=== PATIENT | male | born 1995 | race Caucasian/White ===

== ENCOUNTER 2018-03-08 16:59 | Emergency (ER) | payer BC ==
[2018-03-08] MEDS ORDERED: QUEtiapine TAB* 100 MG PO ONE (17:47)
[2018-03-08] MEDS ORDERED: Nicotine Inhaler* 10 MG AMP ONE (18:01)
[2018-03-08] MEDS ORDERED: Mouth Piece, Nicotine* 1 EACH CARTRIDGE ONE (18:02)
[2018-03-08] MEDS ORDERED: Mouth Piece, Nicotine* 1 EACH CARTRIDGE INH ONE (18:03)
[2018-03-08 18:33] LABS: ABS Basophils 0.1 10^3/ul (0-0.2); ABS Eosinophils 0.1 10^3/ul (0-0.6); ABS Lymphocytes 2.8 10^3/ul (1.0-4.8); ABS Monocytes 0.6 10^3/ul (0-0.8); ABS Neutrophils 4.4 10^3/ul (1.5-7.7); ABS Nucleated RBC 0 10^3/ul; Hematocrit 47 % (42-52); Hemoglobin 16.3 g/dl (14.0-18.0); Lymphocyte % 35.8 % (25-47); Mean Corpuscular HGB Conc 35 g/dl (31-36); Mean Corpuscular Hemoglobin 32 pg (27-31); Mean Corpuscular Volume 92 fL (80-94); Mean Platelet Volume 9.3 um3 (7.4-10.4); Nucleated Red Blood Cells % 0.1; Platelet Count 169 10^3/ul (150-450); Red Blood Count 5.08 10^6/ul (4.00-5.40); Red Cell Distribution Width 14 % (10.5-15); White Blood Count 7.9 10^3/ul (3.5-10.8)
[2018-03-08 18:36] LABS: Urine Appearance Clear; Urine Blood Negative (Negative); Urine Color Yellow; Urine Ketones Negative (Negative); Urine Protein Negative (Negative); Urine Specific Gravity 1.028 (1.010-1.030); Urine Urobilinogen Negative (Negative)
--- NOTE | 2018-03-08 18:45 | ED ---
Chris Garcia Simon, scribed for Marco Antonio Kinney MD on 03/08/18 at 1734 . Psychiatric Complaint - HPI Summary HPI Summary: This patient is a 23 year old M presenting to [facility] accompanied by his roommate with a chief complaint of medication withdrawal since stopping Seroquel. PMHx schizophrenia, anxiety, ADHD. Pt has lived in area for 1 week, and has no psychiatrist locally. Hasnt taken medication for a couple days. He endorses rj due to withdrawal and (responding to) auditory hallucinations. Denies SI. RHx 40 mg Buspar, 400 mg Seroquel. - History Of Current Complaint Chief Complaint: EDMentalHealth Time Seen by Provider: 03/08/18 17:13 Hx Obtained From: Patient Onset/Duration: Gradual Onset, Lasting Days, Worse Since - ran out of meds Timing: Constant Severity Initially: Mild Severity Currently: Moderate Character: Manic Aggravating Factor(s): Medication Non-compliance - ran out of meds Alleviating Factor(s): Medication - seroquel Associated Signs And Symptoms: Positive: Hallucinating Related History: Positive For: Prior Psychiatric Issues - schizophrenia, ADHD, anxiety Has Suicidal: Denies: Thoughts Has Homicidal: Denies: Thoughts - Allergies/Home Medications Allergies/Adverse Reactions: Allergies Allergy/AdvReac Type Severity Reaction Status Date / Time No Known Allergies Allergy Verified 03/08/18 17:03 PMH/Surg Hx/FS Hx/Imm Hx Sensory History: Denies: Hx Contacts or Glasses, Hx Legally Blind Opthamlomology History: Denies: Hx Contacts or Glasses, Hx Legally Blind EENT History: Denies: Hx Deafness Psychiatric History: Reports: Hx Anxiety, Hx Attention Deficit Hyperactivity Disorder, Hx Schizophrenia Infectious Disease History: No Infectious Disease History: Denies: Traveled Outside the US in Last 30 Days - Family History Known Family History: Negative: Blood Disorder - Social History Lives: Dormitory/Roommates - roomate Review of Systems Negative: Fever Neurological: Other - restless legs Positive: Other - auditory hallucinations and responding to them. All Other Systems Reviewed And Are Negative: Yes Physical Exam - Summary Physical Exam Summary: General: well-appearing, no pain distress Skin: warm, color reflects adequate perfusion, dry Head: normal Eyes: EOMI, CHAYO ENT: normal Neck: supple, nontender Respiratory: CTA, breath sounds present Cardiovascular: RRR Abdomen: soft, nontender Bowel: present Musculoskeletal: normal, strength/ROM intact Neurological: sensory/motor intact, A&O x3 Psychological: pressured speech, manic Triage Information Reviewed: Yes Vital Signs On Initial Exam: Initial Vitals Temp Pulse Resp BP Pulse Ox 98.7 F 77 14 126/71 95 03/08/18 17:01 03/08/18 17:01 03/08/18 17:01 03/08/18 17:01 03/08/18 17:01 Vital Signs Reviewed: Yes Diagnostics - Vital Signs Vital Signs Temp Pulse Resp BP Pulse Ox 03/08/18 17:01 98.7 F 77 14 126/71 95 - Laboratory Lab Results: Lab Results 03/08/18 03/08/18 Range/Units 18:24 18:27 WBC 7.9 (3.5-10.8) 10^3/ul RBC 5.08 (4.00-5.40) 10^6/ul Hgb 16.3 (14.0-18.0) g/dl Hct 47 (42-52) % MCV 92 (80-94) fL MCH 32 H (27-31) pg MCHC 35 (31-36) g/dl RDW 14 (10.5-15) % Plt Count 169 (150-450) 10^3/ul MPV 9.3 (7.4-10.4) um3 Neut % (Auto) 54.9 (38-83) % Lymph % (Auto) 35.8 (25-47) % [place] % (Auto) 7.4 H (0-7) % Eos % (Auto) 1.0 (0-6) % Baso % (Auto) 0.9 (0-2) % Absolute Neuts (auto) 4.4 (1.5-7.7) 10^3/ul Absolute Lymphs (auto) 2.8 (1.0-4.8) 10^3/ul Absolute Monos (auto) 0.6 (0-0.8) 10^3/ul Absolute Eos (auto) 0.1 (0-0.6) 10^3/ul Absolute Basos (auto) 0.1 (0-0.2) 10^3/ul Absolute Nucleated RBC 0 10^3/ul Nucleated RBC % 0.1 Urine Color Yellow Urine Appearance Clear Urine pH 6.0 (5-9) Ur Specific [place] 1.028 (1.010-1.030) Urine Protein Negative (Negative) Urine Ketones Negative (Negative) Urine Blood Negative (Negative) Urine Nitrate Negative (Negative) Urine Bilirubin Negative (Negative) Urine Urobilinogen Negative (Negative) Ur Leukocyte Esterase Negative (Negative) Urine Glucose Negative (Negative) Urine Ascorbic Acid * A (Negative) Result Diagrams: 03/08/18 18:27 Lab Statement: Any lab studies that have been ordered have been reviewed, and results considered in the medical decision making process. Re-Evaluation - Re-Evaluation First Eval Re-Evaluation Time: 17:35 Change: Unchanged Comment: discussed pt care, what direction pt would like to take regarding disposition. Agreeable to mental health evaluation. Second Eval Re-Evaluation Time: 18:05 Change: Unchanged Comment: Spoke with pt's roommate, discussed single dose seroquel and going to outpatient tx vs inpatient tx and MHE today. roommate in favor of MHE today. Course/Dx - Course Course Of Treatment: DISPOSITION AND MHE PENDING AT SHIFT CHANGE. - Differential Dx/Clinical Impression Provider Diagnosis: Mental health problem Discharge - Sign-Out/Discharge Documenting (check all that apply): Sign-Out Patient Signing out patient TO: Colin Abraham - MHE - Discharge Plan Condition: Stable [facility] [place] Referrals: No Primary Care Phys,NOPCP [Primary Care Provider] - - Billing Disposition and Condition Condition: STABLE Disposition: Psychiatric Facility [facility] The documentation as recorded by the Chris che Simon accurately reflects the service I personally performed and the decisions made by me, Marco Antonio Kinney MD.
[2018-03-08 18:51] LABS: EGFR Non-African American 96.6 (>60)
--- NOTE | 2018-03-08 23:11 | ED ---
IPetar Tariq, scribed for Colin Abraham MD on 03/08/18 at 2306 . Progress - Consult/PCP Time Called: 17:01 Re-Evaluation - Re-Evaluation First Eval Re-Evaluation Time: 17:35 Change: Unchanged Comment: discussed pt care, what direction pt would like to take regarding disposition. Agreeable to mental health evaluation. Second Eval Re-Evaluation Time: 18:05 Change: Unchanged Comment: Spoke with pt's roommate, discussed single dose seroquel and going to outpatient tx vs inpatient tx and MHE today. roommate in favor of MHE today. Course/Dx - Course Course Of Treatment: DISPOSITION AND MHE PENDING AT SHIFT CHANGE. - Diagnoses Provider Diagnoses: Mental health problem, Schizophrenia - Provider Notifications Discussed Care Of Patient With: Jody Gabriel Discharge - Sign-Out/Discharge Documenting (check all that apply): Discharge/Admit/Transfer - DISCHARGE - Discharge Plan Condition: Stable Disposition: HOME Patient Education Materials: Mood Disorders (ED) Referrals: No Primary Care Phys,NOPCP [Primary Care Provider] - Additional Instructions: FOLLOW UP WITH [facility]. RETURN TO THE EMERGENCY DEPARTMENT FOR CHANGING OR WORSENING SYMPTOMS The documentation as recorded by the Petar che Tariq accurately reflects the service I personally performed and the decisions made by me, Colin Abraham MD.
[2018-03-08 23:29] VITALS: BP 108/62
== END 2018-03-08 23:27 | disposition home or self-care (01) ==
LOC: ED 16:59
DX: F20.9 Schizophrenia, unspecified (principal); R44.3 Hallucinations, unspecified; F41.9 Anxiety disorder, unspecified
CPT/HCPCS: 36415; 80053; 80307; 80320; 80329; 81003; 84443; 85025; 99285; A9270-GY; G0480

== ENCOUNTER 2018-03-31 18:37 | Emergency (ER) | payer BC ==
--- NOTE | 2018-03-31 18:58 | ED ---
Psychiatric Complaint - HPI Summary HPI Summary: This is [facility] documenting for attending Marco Antonio Tello MD. Pt is a 23 y/o M p/w psychiatric complaint onset 09 this AM. Assoc. Sx: Anxiety, disorganized. Denies: SI/HI. Per triage, patient states, "I am having a mental breakdown". Patient has a Hx of cutting themselves when triggered. Per commercial banker, he was disappointed in something someone did today and gave SI over text to a friend which he did not mean. PMHx: Patient was treated with ritalin, anti-anxiety meds, celexa, citalopram - mood stabilizer, zoloft at different times but they failed to alleviate his Sx. He states that Hydroxyzene makes him very happy "running around". - History Of Current Complaint Chief Complaint: EDMentalHealth Time Seen by Provider: 03/31/18 18:51 Hx Obtained From: Patient Onset/Duration: Gradual Onset, Lasting Hours Timing: Constant Character: Anxious Aggravating Factor(s): Recent Stress Associated Signs And Symptoms: Positive: Hostile - "Cutting" Has Suicidal: Denies: Thoughts Has Homicidal: Denies: Thoughts - Allergies/Home Medications Allergies/Adverse Reactions: Allergies Allergy/AdvReac Type Severity Reaction Status Date / Time No Known Allergies Allergy Verified 03/08/18 17:03 Home Medications: Home Medications NK [No Home Medications Reported] 03/31/18 [History Confirmed 03/31/18] PMH/Surg Hx/FS Hx/Imm Hx Sensory History: Denies: Hx Contacts or Glasses, Hx Legally Blind, Hx Deafness Opthamlomology History: Denies: Hx Contacts or Glasses, Hx Legally Blind Psychiatric History: Reports: Hx Anxiety, Hx Attention Deficit Hyperactivity Disorder, Hx Schizophrenia Denies: Hx Eating Disorder Infectious Disease History: No Infectious Disease History: Denies: Traveled Outside the US in Last 30 Days - Family History Known Family History: Negative: Blood Disorder - Social History Occupation: Unemployed Lives: With Family Alcohol Use: Rare Substance Use Type: Reports: Marijuana Smoking Status (MU): Light Every Day Tobacco Smoker Review of Systems Negative: Fever Positive: Anxious, Other - Feeling "disorganized" All Other Systems Reviewed And Are Negative: Yes Physical Exam - Summary Physical Exam Summary: VITAL SIGNS: Reviewed. GENERAL: Patient is a well-developed and nourished (MALE OR FEMALE) who is lying comfortable in the stretcher. Patient is not in any acute respiratory distress. HEAD AND FACE: No signs of trauma. No ecchymosis, hematomas or skull depressions. No sinus tenderness. EYES: PERRLA, EOMI x 2, No injected conjunctiva, no nystagmus. EARS: Hearing grossly intact. Ear canals and tympanic membranes are within normal limits. MOUTH: Oropharynx within normal limits. NECK: Supple, trachea is midline, no adenopathy, no JVD, no carotid bruit, no c- spine tenderness, neck with full ROM. CHEST: Symmetric, no tenderness at palpation LUNGS: Clear to auscultation bilaterally. No wheezing or crackles. CVS: Regular rate and rhythm, S1 and S2 present, no murmurs or gallops appreciated. ABDOMEN: Soft, non-tender. No signs of distention. No rebound no guarding, and no masses palpated. Bowel sounds are normal. EXTREMITIES: FROM in all major joints, no edema, no cyanosis or clubbing. NEURO: Alert and oriented x 3. No acute neurological deficits. Speech is normal and follows commands. SKIN: Dry and warm Triage Information Reviewed: Yes Vital Signs On Initial Exam: Initial Vitals Temp Pulse Resp BP Pulse Ox 99.0 F 85 16 153/82 99 03/31/18 18:38 03/31/18 18:38 03/31/18 18:38 03/31/18 18:38 03/31/18 18:38 Vital Signs Reviewed: Yes Diagnostics - Vital Signs Vital Signs Temp Pulse Resp BP Pulse Ox 03/31/18 18:38 99.0 F 85 16 153/82 99 - Laboratory Result Diagrams: 03/31/18 19:45 03/31/18 19:45 Lab Statement: Any lab studies that have been ordered have been reviewed, and results considered in the medical decision making process. Course/Dx - Course Assessment/Plan: Blood work without any significant abnormality. Patient is medically clear. Patient is awaiting for mental health evaluation. Patient is hemodynamically stable. Patient will be signed out to Dr. Hicks at shift change to follow-up the recommendations from mental health. - Differential Dx/Clinical Impression Differential Diagnosis/HQI/PQRI: Positive: Anxiety, Depression, Suicidal Ideation Provider Diagnosis: Depression Discharge - Sign-Out/Discharge Documenting (check all that apply): Sign-Out Patient Signing out patient TO: Dannie Hicks - Discharge Plan Referrals: No Primary Care Phys,NOPCP [Primary Care Provider] -
[2018-03-31 19:16] LABS: Urine Appearance Cloudy; Urine Blood Negative (Negative); Urine Color Yellow; Urine Ketones Negative (Negative); Urine Protein Negative (Negative); Urine Red Blood Cell 1+(3-5/hpf) (Absent); Urine Specific Gravity 1.025 (1.010-1.030); Urine Urobilinogen Negative (Negative); Urine White Blood Cell 2+(11-20/hpf) (Absent)
[2018-03-31 19:56] LABS: ABS Basophils 0.1 10^3/ul (0-0.2); ABS Eosinophils 0.1 10^3/ul (0-0.6); ABS Lymphocytes 2.4 10^3/ul (1.0-4.8); ABS Monocytes 0.7 10^3/ul (0-0.8); ABS Neutrophils 6.5 10^3/ul (1.5-7.7); ABS Nucleated RBC 0 10^3/ul; Eosinophil % 0.5 % (0-6); Hematocrit 47 % (42-52); Hemoglobin 16.4 g/dl (14.0-18.0); Lymphocyte % 24.7 % (25-47); Mean Corpuscular HGB Conc 35 g/dl (31-36); Mean Corpuscular Hemoglobin 32 pg (27-31); Mean Corpuscular Volume 92 fL (80-94); Mean Platelet Volume 9.2 um3 (7.4-10.4); Nucleated Red Blood Cells % 0.1; Platelet Count 190 10^3/ul (150-450); Red Blood Count 5.11 10^6/ul (4.00-5.40); Red Cell Distribution Width 13 % (10.5-15); White Blood Count 9.8 10^3/ul (3.5-10.8)
[2018-03-31 20:28] LABS: EGFR Non-African American 79.1 (>60)
[2018-03-31 20:47] VITALS: BP 120/74
--- NOTE | 2018-03-31 22:17 | ED ---
Progress - Progress Note Progress Note: This patient was signed out from Dr. Tello awaiting MHE and dispo. - Consult/PCP Time Called: 19:25 Course/Dx - Course Course Of Treatment: After MHE by Dr. Gabriel the pt was deemed stable to return home with dx of substance abuse disorder. - Diagnoses Provider Diagnoses: Substance abuse Discharge - Sign-Out/Discharge Documenting (check all that apply): Patient Departure, Receiving Sign-Out Receiving patient FROM: Miguel Tello - Discharge Plan Condition: Stable Disposition: HOME Referrals: No Primary Care Phys,NOPCP [Primary Care Provider] - Additional Instructions: Per completion of a mental health evaluation, you are cleared for release and do not require inpatient psychiatric hospitalization at this time. Please go to nearest emergency room or call 911 if safety concerns arise or condition worsens. Follow up with [facility] for medication management and therapy. [facility].......................[phone] [place] [address] Behavioral Services Unit........[phone] Suicide Prevention and Crisis Services........................[phone] National Suicide Prevention Lifeline............................356-298-CWKR ( 0431) Alcoholics Anonymous...............................................[phone] [facility]..............[phone] [place] [employer]..............................................[phone] - Billing Disposition and Condition Condition: STABLE Disposition: Home
== END 2018-03-31 23:14 | disposition home or self-care (01) ==
LOC: ED 18:37
DX: F41.9 Anxiety disorder, unspecified (principal); F32.9 Major depressive disorder, single episode, unspecified; F19.10 Other psychoactive substance abuse, uncomplicated; F17.200 Nicotine dependence, unspecified, uncomplicated
CPT/HCPCS: 36415; 80053; 80061; 80307; 80320; 80329; 81003; 81015; 83036; 84443; 85025; 87086; 99283; G0480

== ENCOUNTER 2018-04-01 03:15 | Inpatient (IN) | payer BC ==
--- NOTE | 2018-04-01 03:33 | ED ---
Psychiatric Complaint - HPI Summary HPI Summary: This is yane Zamora documenting for attending Dannie Hicks MD. This patient is a 23 year old M presenting to [facility] accompanied by a housemate with a chief complaint of SI. Pt states he needs to be admitted for SI and is requesting specific medications. He feels this way due to the recent stress of living with one of his roommates who has been mean to him. Pt was just discharged from the ED for similar issues earlier today and used marijuana after he left. - History Of Current Complaint Chief Complaint: EDMentalHealth Time Seen by Provider: 04/01/18 03:22 Hx Obtained From: Patient Onset/Duration: Still Present Timing: Constant Severity Initially: Mild Severity Currently: Mild Character: Depressed Aggravating Factor(s): Recent Stress, Drug Use Related History: Positive For: Prior Psychiatric Issues Has Suicidal: Reports: Thoughts - Allergies/Home Medications Allergies/Adverse Reactions: Allergies Allergy/AdvReac Type Severity Reaction Status Date / Time No Known Allergies Allergy Verified 03/08/18 17:03 PMH/Surg Hx/FS Hx/Imm Hx Endocrine/Hematology History: Denies: Hx Bone Marrow Disease, Hx Diabetes Sensory History: Denies: Hx Contacts or Glasses, Hx Legally Blind, Hx Deafness Opthamlomology History: Denies: Hx Contacts or Glasses, Hx Legally Blind Neurological History: Denies: Hx CVA, Hx Peripheral Neuropathy, Hx Transient Ischemic Attacks (TIA) Psychiatric History: Reports: Hx Anxiety, Hx Attention Deficit Hyperactivity Disorder, Hx Schizophrenia Denies: Hx Eating Disorder Infectious Disease History: No Infectious Disease History: Denies: Traveled Outside the US in Last 30 Days - Family History Known Family History: Negative: Respiratory Disease, Seizure Disorder, Blood Disorder - Social History Lives: Dormitory/Roommates Alcohol Use: Rare Substance Use Type: Reports: Marijuana Smoking Status (MU): Light Every Day Tobacco Smoker Review of Systems Negative: Fever Positive: Other - si All Other Systems Reviewed And Are Negative: Yes Physical Exam - Summary Physical Exam Summary: Appearance: Well appearing, no pain distress Skin: warm, dry, reflects adequate perfusion Head/face: normal Eyes: EOMI, CHAYO ENT: normal Neck: supple, non-tender Respiratory: CTA, breath sounds present Cardiovascular: RRR, pulses symmetrical Abdomen: non-tender, soft Bowel: present Musculoskeletal: normal, strength/ROM intact Neuro: normal, sensory motor intact, A&Ox3 Psych: Depressed affect Triage Information Reviewed: Yes Vital Signs On Initial Exam: Initial Vitals Temp Pulse Resp BP Pulse Ox 98.5 F 100 18 144/84 98 04/01/18 03:17 04/01/18 03:17 04/01/18 03:17 04/01/18 03:17 04/01/18 03:17 Vital Signs Reviewed: Yes Diagnostics - Vital Signs Vital Signs Temp Pulse Resp BP Pulse Ox 04/01/18 03:17 98.5 F 100 18 144/84 98 - Laboratory Lab Statement: Any lab studies that have been ordered have been reviewed, and results considered in the medical decision making process. Course/Dx - Course Assessment/Plan: After MHE by Dr. Gabriel the patient will be admitted for SI and depression. - Differential Dx/Clinical Impression Provider Diagnosis: Suicidal ideation, Depression Discharge - Sign-Out/Discharge Documenting (check all that apply): Patient Departure - admitted - Discharge Plan Condition: Fair Disposition: [facility] - Billing Disposition and Condition Condition: FAIR Disposition: Psychiatric Facility [facility]
[2018-04-01] MEDS ORDERED: Al Hydrox/Mg Hydrox/Simet LIQ* 30 ML UDC PO PRN (06:24)
[2018-04-01] MEDS ORDERED: Nicotine Inhaler* 10 MG AMP INH PRN (06:24)
[2018-04-01] MEDS ORDERED: Acetaminophen TAB* 325 MG PO PRN (06:24)
[2018-04-01] MEDS ORDERED: Mouth Piece, Nicotine* 1 EACH CARTRIDGE INH SCH (06:24)
[2018-04-01] MEDS: Vitamin THERAPEUTIC TAB PO SCH (12:26)
--- NOTE | 2018-04-01 15:47 | HP ---
H&P (Free Text) History and Physical: JUSTIFICATION FOR ADMISSION: Patient presented to emergency room with suicidal ideation and plan, worsening of his mood instability, suicidal thoughts and delusional thinking. He requires inpatient psychiatric admission in order to provide treatment and stabilization as he is a danger to himself. CHIEF COMPLAINT: "I was feeling suicidal; Monik mother is mean to me HISTORY OF THE PRESENT ILLNESS: Patient is 23 a y/o homosexual male, single, living with his father like figures, currently unemployed, with history of psychotic and manic symptoms. Patient was admitted to inpatient unit for worsening of his mood instability and suicidal thoughts with psychotic and paranoid/persecutory delusions. Patient has been not be compliant with his outpatient mental health treatment and medications for months. Patient reports that he has been erratic at home, talking to self, hyperverbal, loud, restless, not sleeping, increased goal directed activity, paranoid towards others at the house. Patient reports that marijuana works for him and brings down his anxiety and paranoia. Patient reports that he is not getting enough from [employer] as he cannot afford it anymore. Patient reportedly has been struggling with his financial issues as he has not been working and has estranged relationship with his biological mother and father. Patient reports manic symptoms as mentioned above. Patient reports psychotic symptoms of mostly his delusional thinking and auditory hallucinations that belittles him. Patient reported suicidal ideation when he was driving with [facility] to that hospital. Patient continued to exhibit behavior that is unpredictable and impulsive but has been seclusive on the unit and reported feeling better as he smoked a lot before coming in last night. Patient focused on Effexor and Zyprexa that has helped him in the past and wants to be restarted on that. Patient also asking provider to see his video that [employer] has taken and he will want it to be sent to social security office and when asked why he stated that he has always been on disability. PAST PSYCHIATRIC HISTORY: Patient has history of multiple inpatient psychiatric hospitalization due to both manic/psychotic symptoms and depression. Patient has history of intermittent outpatient psychiatric treatment for his mood and psychosis but reportedly has not been in any treatment for last 2 years. Patient has been on multiple medication trial in the past and reports responding to Effexor 75 mg and Zyprexa 20 mg. Patient reported SSRI did not help him in the past. Patient has history of suicidal thoughts and attempts in the past by either cutting wrist or trying to hang self leading to hospitalizations. Patient reports most were related to relationship difficulties. Patient has history of no homicidal threats, intent or attempt. Patient has history of aggressive and agitated behavior when decompensates. No access to firearm reported. SUBSTANCE ABUSE HISTORY: Patient uses cannabis regularly unspecified amounts daily. Urine toxicology was positive for cannabis. Last use was before presenting to E.D. PAST MEDICAL HISTORY: No active medical problems ALLERGIES: NKA FAMILY PSYCHIATRIC HISTORY: Patient has family history of anxiety/depression in mother but feels that his father has schizophrenia. Patient has history of substance abuse in family. No reported suicide in the family. FAMILY/PSYCHOSOCIAL HISTORY: Patient currently lives with his father like figures. Patient is not . Patient has no children. Patient has estranged relationship with his parents. Parents are not together. Patient has not seen his father since he was very young and just speaks to him on the phone. Patient education level is dropped out from 11th grade and reports that he had difficulty with mathematics and never pursued his further education. Patient support system includes his housemates and his friends. REVIEW OF SYSTEMS: Patients review of symptoms was negative for any physical complaint. But patient has been seclusive and depressed in his mood, vitals with in normal limits. Patients ED physical exam was reviewed which is grossly normal with no active medical problem. Physical Exam Summary as per E.D: Appearance: Well appearing, no pain distress Skin: warm, dry, reflects adequate perfusion Head/face: normal Eyes: EOMI, CHAYO ENT: normal Neck: supple, non-tender Respiratory: CTA, breath sounds present Cardiovascular: RRR, pulses symmetrical Abdomen: non-tender, soft Bowel: present Musculoskeletal: normal, strength/ROM intact Neuro: normal, sensory motor intact, A&Ox3 MENTAL STATUS EXAMINATION: Appearance: unkempt, poor eye contact, dressed in hospital gown, lying on his bed Behavior: superficially cooperative Gait: normal Abnormal motor activity: restless, hyperactive Speech: loud, hyperverbal, increased rate and rhythm Mood: depressed Affect: labile Thought process: tangential to circumstantial Thought Content: Suicidal/Homicidal ideation: denies Delusions: paranoid toward everns mother Obsessions: none Phobia: none Perceptual disturbance: none Attention: fair Orientation: grossly intact Concentration: limited Memory: fair Insight: limited Judgment: fair Impulse control: poor as per recent evidence IMPRESSION: Patient with history of mood disorder and psychotic symptoms with cannabis abuse. Patient currently admitted due to worsening of mood and suicidal thoughts. Patient has also failed to follow with outpatient f/u. Patient is a danger to self and others if discharged hence will be stabilized on inpatient unit with medication adjustments and therapy. DIAGNOSES: Schizoaffective Disorder, Cannabis Abuse Prov: Substance Induced Mood /Psychotic Disorder; Bipolar Disorder with Psychotic features PLAN: Admit to [facility] on Q 15 min observation. Patient is full code. Patient is on voluntary admission status Integrate patient into the milieu individual and group psychotherapy MMPI and psychological consult with Dr. Benitez. Social work consult for therapy and discharge planning Will hold family meeting with parents to increase Data base if possible. Patient gave informed consent to start the following medications: Patient refused for now to start Depakote and [place] and was more focused towards Zyprexa that has helped him in the past with Effexor. Given current presentation of manic and psychotic symptoms patient will be started on Zyprexa 10 mg HS with Hydroxyzine 50mg HS and will be monitored for improvement in his symptoms. Patient will be closely monitored for depression and recent suicidal thoughts and need for and antidepressant. Patient currently feels safe in the hospital and will approach staff when in need. Patient was also started on Haldol 5mg/Ativan 2 mg/Benadryl 50mg PRN for agitation/anxiety and EPS. Will continue to monitor and f/u for improvement and side effects. Era Oneal MD Attending Psychiatrist
[2018-04-01] MEDS ORDERED: OLANzapine TAB* 10 MG PO ONE (20:55)
[2018-04-01] MEDS ORDERED: OLANzapine TAB* 10 MG PO SCH (21:00)
[2018-04-01] MEDS ORDERED: OLANzapine TAB* 10 MG ONE (21:00)
[2018-04-01] MEDS ORDERED: hydrOXYzine HCL TAB* 50 MG PO SCH (21:00)
[2018-04-01] MEDS: diPHENhydraMINE PO* 50 MG PO PRN (21:09)
[2018-04-02] MEDS ORDERED: diPHENhydraMINE IV* 50 MG/ML 1 ml VIAL (BENADRYL) ONE (11:49)
[2018-04-02] MEDS ORDERED: Haloperidol INJ IV/IM* 5 MG/ML AMP ONE (11:49)
[2018-04-02] MEDS ORDERED: LORazepam INJ* 2 MG/ML 1 ML VIAL ONE (11:49)
[2018-04-02] MEDS: Haloperidol TAB* 5 MG PO PRN (11:50)
[2018-04-02] MEDS: LORazepam TAB(*) 1 MG PO PRN (11:50)
[2018-04-02] MEDS: diPHENhydraMINE PO* 50 MG PO PRN ×2 (11:50→19:32)
[2018-04-02] MEDS: Vitamin THERAPEUTIC TAB PO SCH (12:02)
--- NOTE | 2018-04-02 12:37 | PN ---
Subjective - Subjective Date of Service: 04/02/18 Service Type: 78907 Hosp care 25 min moderate complexity Subjective: Patient was seen by self, discussed with treatment team, chart was reviewed. Patient has been compliant with his medications, no reported side effects. Patient was very loud agitated and aggressive this morning and afternoon and pacing on the floor, illogical and delusional towards others on the unit including staff and patients. Patient wanting to be discharged. Patient sleeping has been disturbed, extremely labile, internally preoccupied, restless , hyperverbal, hyperactive, disorganized, not sleeping well. Patient eating has been fine, brief group attendance. Patient has been uncooperative with staff, was pounding his fist on the oliveros, very volatile, loud and aggressive was danger to self and others. Patient behavior has been out of control was offered PO Haldol/Benadryl and Ativan and took it. Patient has been reporting no suicidal or homicidal ideation. Objective - Appearance Appearance: Healthy Appearing Dysmorphic Features: No Hygiene: Normal Grooming: Fairly Well Kept - Behavior Psychomotor Activities: Abnormal-Increased Exhibits Abnormal Movement: No - Attitude and Relatedness Attitude and Relatedness: Psychotically Related Eye Contact: Poor - Speech Quality: Pressured Latencies: Short Quantity: Copious - Mood Patient's Decription of Mood: "Angry" - Affect Observed Affect: Labile Affect Consistent with: Dysphoria - to irritability - Thought Process Patient's Thought Process: Disorganized, Filght of Ideas Thought Content: Yes Paranoid Ideation, No Passive Wish, No Suicidal Planning, No Homicidal Ideation - Sensorium Experiencing Hallucinations: No, Sensorium is Clear Type of Hallucinations: Visual: No, Auditory: No - but appears to be internally preoccupied, Command: No - Level of Consciousness Level of Consciousness: Agitated Orientation: Yes Intact, Yes Orientated to Time, Yes Orientated to Place, Yes Orientated to Person - Impulse Control Impulse Control: Poor - Insight and Judgement Insight and Judgement: Impaired - Medication Management Medication Management Adherence: Yes Assessment - Assessment Merits Inpatient Hospitalization: For Immediate Safety, For Stabilization, For Discharge Planning Inpatient DSM-V Dx: F25.8 Clinical Impression: Patient with history of mood disorder and psychotic symptoms with cannabis abuse. Patient currently admitted due to worsening of mood and behavioral dysregulation with suicidal thoughts. Patient has also failed to follow with outpatient f/u. Patient is a danger to self and others if discharged hence will be stabilized on inpatient unit with medication adjustments and therapy. Plan - Plan Treatment Plan: Name: REAL GIRON Birthdate: 1995 [id number] - Patient continues to be hospitalized due to mood and behavioral dysregulation with psychosis, suicidal thoughts and impulsivity. - Patient's medications were adjusted after informed consent with increment in Zyprexa 10 mg BID and Hydroxyzine 50 mg BID and Haldol/Ativan and Benadryl to be continued as need for agitation/anxiety/eps. - Patient will be monitored for improvement and side effects. Risk and benefits were discussed. - Patient was encouraged to continue his participation in the milieu, group and individual therapy. Medications: Current Medications Acetaminophen (Tylenol Tab*) 650 mg PO Q4H PRN PRN Reason: PAIN or TEMP > 101 F Al Hydrox/Mg Hydrox/Simethicone (Maalox Plus*) 30 ml PO Q4H PRN PRN Reason: INDIGESTION Device (Nicotine Mouth Piece*) 1 each INH .[facility] Diphenhydramine HCl (Benadryl Po*) 50 mg PO Q6H PRN PRN Reason: Anxiety/eps Last Admin: 04/02/18 11:50 Dose: 50 mg Haloperidol (Haldol Tab*) 5 mg PO Q6H PRN PRN Reason: AGITATION Last Admin: 04/02/18 11:50 Dose: 5 mg Hydroxyzine HCl (Atarax Tab*) 50 mg PO BID [facility] Lorazepam (Ativan Tab(*)) 2 mg PO Q6H PRN PRN Reason: ANXIETY Last Admin: 04/02/18 11:50 Dose: 2 mg Multivitamins (Theragran Tab*) 1 tab PO DAILY [facility] Last Admin: 04/02/18 12:02 Dose: Not Given Nicotine (Nicotine Inhaler*) 10 mg INH Q2H PRN PRN Reason: CRAVING Nicotine Polacrilex (Nicotine Gum*) 2 mg PO Q2H PRN PRN Reason: CRAVING Olanzapine (Zyprexa Tab*) 10 mg PO BID [facility]
[2018-04-02] MEDS: OLANzapine TAB* 10 MG PO SCH (19:32)
[2018-04-02] MEDS: hydrOXYzine HCL TAB* 50 MG PO SCH (20:25)
[2018-04-03] MEDS: Vitamin THERAPEUTIC TAB PO SCH (09:51)
[2018-04-03] MEDS: OLANzapine TAB* 10 MG PO SCH ×2 (09:51→21:38)
[2018-04-03] MEDS: hydrOXYzine HCL TAB* 50 MG PO SCH ×2 (09:51→21:40)
[2018-04-03] MEDS: Divalproex DR TAB(*) 250 MG PO SCH ×2 (10:38→21:38)
[2018-04-03] MEDS: diPHENhydraMINE PO* 50 MG PO PRN (10:38)
--- NOTE | 2018-04-03 12:17 | PN ---
Subjective - Subjective Date of Service: 04/03/18 Service Type: 70122 Hosp care 25 min moderate complexity Subjective: Patient was seen by self, discussed with treatment team, chart was reviewed. Patient has been compliant with his medications, no reported side effects. Patient was still manic, irritable, impulsive, hyperactive, restless, hyperverbal, loud, easily distractable, illogical and delusional towards others. Patient wanting to be discharged. Patient sleeping has been improving with his appetite. Patient has been uncooperative with staff, with his unpredictable/impulsive behavior. Patient behavior has been out of control, running in the hallway, was asking for a medications to "release hi energy". Patient was offered PO Depakote 750 mg . Patient has been reporting no suicidal or homicidal ideation. Objective - Appearance Appearance: Healthy Appearing Dysmorphic Features: No Hygiene: Normal Grooming: Disheveled - Behavior Psychomotor Activities: Abnormal-Increased Exhibits Abnormal Movement: No - Attitude and Relatedness Attitude and Relatedness: Irritable Eye Contact: Poor - Speech Quality: Pressured Latencies: Short Quantity: Copious - Mood Patient's Decription of Mood: "Great" - Affect Observed Affect: Labile Affect Consistent with: Dysphoria - Thought Process Patient's Thought Process: Tangential - at times, Circumstantial Thought Content: Yes Paranoid Ideation, No Passive Wish, No Suicidal Planning, No Homicidal Ideation - Sensorium Experiencing Hallucinations: No, Sensorium is Clear Type of Hallucinations: Visual: No, Auditory: No, Command: No - Level of Consciousness Level of Consciousness: Agitated Orientation: Yes Intact, Yes Orientated to Time, Yes Orientated to Place, Yes Orientated to Person - Impulse Control Impulse Control: Poor - Insight and Judgement Insight and Judgement: Impaired - Medication Management Medication Management Adherence: Yes Assessment - Assessment Merits Inpatient Hospitalization: For Stabilization, For Discharge Planning Inpatient DSM-V Dx: F25.8 Clinical Impression: Patient with history of mood disorder and psychotic symptoms with cannabis abuse. Patient currently admitted due to worsening of mood and behavioral dysregulation with suicidal thoughts. Patient has also failed to follow with outpatient f/u. Patient is a danger to self and others if discharged hence will be stabilized on inpatient unit with medication adjustments and therapy. Plan - Plan Treatment Plan: Name: REAL GIRON Birthdate: 1995 [id number] - Patient continues to be hospitalized due to mood and behavioral dysregulation with psychosis, suicidal thoughts and impulsivity. - Patient's medications were adjusted after informed consent with increment in Zyprexa 10 mg BID and Hydroxyzine 50 mg BID. Also patient was started on Depakote 750 mg BID for his manic symptoms and one dose given now. Patient Haldol/Ativan and Benadryl to be continued as need for agitation/anxiety/eps. - Patient will be monitored for improvement and side effects. Risk and benefits were discussed. - Patient was encouraged to continue his participation in the milieu, group and individual therapy. Medications: Current Medications Acetaminophen (Tylenol Tab*) 650 mg PO Q4H PRN PRN Reason: PAIN or TEMP > 101 F Al Hydrox/Mg Hydrox/Simethicone (Maalox Plus*) 30 ml PO Q4H PRN PRN Reason: INDIGESTION Device (Nicotine Mouth Piece*) 1 each INH .[facility] Diphenhydramine HCl (Benadryl Po*) 50 mg PO Q6H PRN PRN Reason: Anxiety/eps Last Admin: 04/03/18 10:38 Dose: 50 mg Divalproex Sodium (Depakote Dr Tab(*)) 750 mg PO BID [facility] Last Admin: 04/03/18 10:38 Dose: 750 mg Haloperidol (Haldol Tab*) 5 mg PO Q6H PRN PRN Reason: AGITATION Last Admin: 04/02/18 11:50 Dose: 5 mg Hydroxyzine HCl (Atarax Tab*) 50 mg PO BID [facility] Last Admin: 04/03/18 09:51 Dose: 50 mg Lorazepam (Ativan Tab(*)) 2 mg PO Q6H PRN PRN Reason: ANXIETY Last Admin: 04/02/18 11:50 Dose: 2 mg Multivitamins (Theragran Tab*) 1 tab PO DAILY [facility] Last Admin: 04/03/18 09:51 Dose: 1 tab Nicotine (Nicotine Inhaler*) 10 mg INH Q2H PRN PRN Reason: CRAVING Nicotine Polacrilex (Nicotine Gum*) 2 mg PO Q2H PRN PRN Reason: CRAVING Olanzapine (Zyprexa Tab*) 10 mg PO BID [facility] Last Admin: 04/03/18 09:51 Dose: 10 mg
[2018-04-04] MEDS: Divalproex DR TAB(*) 250 MG PO SCH ×2 (09:25→21:20)
[2018-04-04] MEDS: Vitamin THERAPEUTIC TAB PO SCH (09:25)
[2018-04-04] MEDS: OLANzapine TAB* 10 MG PO SCH ×2 (09:25→21:20)
[2018-04-04] MEDS: hydrOXYzine HCL TAB* 50 MG PO SCH ×2 (09:26→22:11)
[2018-04-04] MEDS: Haloperidol TAB* 5 MG PO PRN (11:47)
[2018-04-04] MEDS: diPHENhydraMINE PO* 50 MG PO PRN (11:47)
[2018-04-05] MEDS: diPHENhydraMINE PO* 50 MG PO PRN ×3 (01:45→23:45)
[2018-04-05] MEDS: Divalproex DR TAB(*) 250 MG PO SCH ×2 (09:34→21:00)
[2018-04-05] MEDS: Vitamin THERAPEUTIC TAB PO SCH (09:34)
[2018-04-05] MEDS: OLANzapine TAB* 10 MG PO SCH ×2 (09:34→21:00)
[2018-04-05] MEDS: hydrOXYzine HCL TAB* 50 MG PO SCH ×2 (09:34→21:00)
--- NOTE | 2018-04-05 15:50 | PN ---
Subjective - Subjective Date of Service: 04/05/18 Service Type: [id number] Hosp care 15 min low complexity Subjective: Jeferson continues to very impulsive, evasive and unpredictable. Argues about the wrong treatments he receives here. He should only be treated with marijuana he reports. It's only when runs out of money and can't afford marijuana his schizophrenia flares up he says. At one point he asked me to leave him alone and get out of his room. Objective - Appearance Appearance: Well Developed/Nourished Dysmorphic Features: No Hygiene: Mal-odorous Grooming: Disheveled - Behavior Psychomotor Activities: Abnormal-Increased - Attitude and Relatedness Attitude and Relatedness: Irritable Eye Contact: Poor - Speech Quality: Pressured Latencies: Short Quantity: Copious - Mood Patient's Decription of Mood: "Angry" - Affect Observed Affect: Expansive Affect Consistent with: Dysphoria - Thought Process Patient's Thought Process: Coherent, Disorganized, Tangential Thought Content: No Passive Wish, No Suicidal Planning, No Homicidal Ideation, No Paranoid Ideation - Sensorium Type of Hallucinations: Visual: No, Auditory: No, Command: No - Level of Consciousness Level of Consciousness: Alert Orientation: Yes Intact, Yes Orientated to Time, Yes Orientated to Place, Yes Orientated to Person - Impulse Control Impulse Control: Impaired - Insight and Judgement Insight and Judgement: Impaired - Group Participation Particating in Group Activities: No - Medication Management Medication Management Adherence: Partial Assessment - Assessment Merits Inpatient Hospitalization: For Immediate Safety - and others, For Stabilization, Pending Safe DC Plan Inpatient DSM-V Dx: F25.8 Plan - Plan Treatment Plan: Name: JEFERSON GIRON Birthdate: 1995 [id number] Continued Medication Management: Continue Outpt Medication Medications: Current Medications Acetaminophen (Tylenol Tab*) 650 mg PO Q4H PRN PRN Reason: PAIN or TEMP > 101 F Al Hydrox/Mg Hydrox/Simethicone (Maalox Plus*) 30 ml PO Q4H PRN PRN Reason: INDIGESTION Device (Nicotine Mouth Piece*) 1 each INH .[facility] Diphenhydramine HCl (Benadryl Po*) 50 mg PO Q6H PRN PRN Reason: Anxiety/eps Last Admin: 04/05/18 01:45 Dose: 50 mg Divalproex Sodium (Depakote Dr Tab(*)) 750 mg PO BID [facility] Last Admin: 04/05/18 09:34 Dose: 750 mg Haloperidol (Haldol Tab*) 5 mg PO Q6H PRN PRN Reason: AGITATION Last Admin: 04/04/18 11:47 Dose: 5 mg Hydroxyzine HCl (Atarax Tab*) 50 mg PO BID [facility] Last Admin: 04/05/18 09:34 Dose: 50 mg Lorazepam (Ativan Tab(*)) 2 mg PO Q6H PRN PRN Reason: ANXIETY Last Admin: 04/02/18 11:50 Dose: 2 mg Multivitamins (Theragran Tab*) 1 tab PO DAILY [facility] Last Admin: 04/05/18 09:34 Dose: 1 tab Nicotine (Nicotine Inhaler*) 10 mg INH Q2H PRN PRN Reason: CRAVING Nicotine Polacrilex (Nicotine Gum*) 2 mg PO Q2H PRN PRN Reason: CRAVING Olanzapine (Zyprexa Tab*) 10 mg PO BID [facility] Last Admin: 04/05/18 09:34 Dose: 10 mg - Discharge Plan Discharge Plan: Drug/Alcohol Rehab
[2018-04-05] MEDS: LORazepam TAB(*) 1 MG PO PRN (22:21)
[2018-04-05] MEDS: Haloperidol TAB* 5 MG PO PRN (23:45)
[2018-04-05] MEDS: Nicotine GUM* 2 MG PO PRN (23:45)
[2018-04-06] MEDS: Divalproex DR TAB(*) 250 MG PO SCH (10:08)
[2018-04-06] MEDS: OLANzapine TAB* 10 MG PO SCH ×2 (10:09→20:47)
[2018-04-06] MEDS: Vitamin THERAPEUTIC TAB PO SCH (10:09)
[2018-04-06] MEDS: hydrOXYzine HCL TAB* 50 MG PO SCH ×2 (10:09→20:47)
[2018-04-06] MEDS: Nicotine GUM* 2 MG PO PRN (10:10)
--- NOTE | 2018-04-06 12:30 | PN ---
Subjective - Subjective Date of Service: 04/06/18 Service Type: [id number] Hosp care 15 min low complexity Subjective: Patient was seen by self, discussed with treatment team, chart was reviewed. Patient has been compliant with his medications, no reported side effects. Patient was better this morning and improvement in mood and behavior but continue to perseverant about his discharge. Patient less manic, less irritable , and impulsive, less hyperactive, restless, illogical and delusional at times. Patient sleeping has been improving with his appetite. Patient has been more cooperative with staff. Patient Depakote level was 73 this morning. Patient was restless and irritable about his social security benefits and received PRN to clam him down. Patient has been reporting no suicidal or homicidal ideation. Objective - Appearance Appearance: Healthy Appearing Dysmorphic Features: No Hygiene: Normal Grooming: Fairly Well Kept - Behavior Psychomotor Activities: Abnormal-Increased - but improving Exhibits Abnormal Movement: No - Attitude and Relatedness Attitude and Relatedness: Superficially Cooperative Eye Contact: Fair - Speech Quality: Unpressured Latencies: Normal Quantity: Appropriate - Mood Patient's Decription of Mood: "Upset" - Affect Observed Affect: Labile - less Affect Consistent with: Dysphoria - less - Thought Process Patient's Thought Process: Goal Directed - mostly, Disorganized - at times, Circumstantial Thought Content: No Passive Wish, No Suicidal Planning, No Homicidal Ideation, No Paranoid Ideation - Sensorium Experiencing Hallucinations: No, Sensorium is Clear Type of Hallucinations: Visual: No, Auditory: No, Command: No - Level of Consciousness Level of Consciousness: Alert Orientation: Yes Intact, Yes Orientated to Time, Yes Orientated to Place, Yes Orientated to Person - Impulse Control Impulse Control: Poor - but improving - Insight and Judgement Insight and Judgement: Poor - but improving - Medication Management Medication Management Adherence: Yes Assessment - Assessment Merits Inpatient Hospitalization: For Immediate Safety, For Stabilization, For Discharge Planning Inpatient DSM-V Dx: F25.8 Clinical Impression: Patient with history of mood disorder and psychotic symptoms with cannabis abuse. Patient currently admitted due to worsening of mood and behavioral dysregulation with suicidal thoughts. Patient has also failed to follow with outpatient f/u. Patient is a danger to self and others if discharged hence will be stabilized on inpatient unit with medication adjustments and therapy. Plan - Plan Treatment Plan: Name: REAL GIRON Birthdate: 1995 [id number] - Patient continues to be hospitalized due to mood and behavioral dysregulation with psychosis, suicidal thoughts and impulsivity. - Patient's medications were adjusted after informed consent with increment in Zyprexa 10 mg BID and Hydroxyzine 50 mg BID. Also patient Depakote was increased to 750 mg QAM and 1000mg HS. for his manic symptoms and one dose given now. Patient Haldol/Ativan and Benadryl to be continued as need for agitation/anxiety/eps. - Patient will be monitored for improvement and side effects. Risk and benefits were discussed. - Patient was encouraged to continue his participation in the milieu, group and individual therapy. Medications: Current Medications Acetaminophen (Tylenol Tab*) 650 mg PO Q4H PRN PRN Reason: PAIN or TEMP > 101 F Al Hydrox/Mg Hydrox/Simethicone (Maalox Plus*) 30 ml PO Q4H PRN PRN Reason: INDIGESTION Device (Nicotine Mouth Piece*) 1 each INH .[facility] Diphenhydramine HCl (Benadryl Po*) 50 mg PO Q6H PRN PRN Reason: Anxiety/eps Last Admin: 04/05/18 23:45 Dose: 50 mg Divalproex Sodium (Depakote Dr Tab(*)) 1,000 mg PO BEDTIME [facility] Divalproex Sodium (Depakote Dr Tab(*)) 750 mg PO QAM [facility] Haloperidol (Haldol Tab*) 5 mg PO Q6H PRN PRN Reason: AGITATION Last Admin: 04/05/18 23:45 Dose: 5 mg Hydroxyzine HCl (Atarax Tab*) 50 mg PO BID [facility] Last Admin: 04/06/18 10:09 Dose: 50 mg Lorazepam (Ativan Tab(*)) 2 mg PO Q6H PRN PRN Reason: ANXIETY Last Admin: 04/05/18 22:21 Dose: 2 mg Multivitamins (Theragran Tab*) 1 tab PO DAILY [facility] Last Admin: 04/06/18 10:09 Dose: 1 tab Nicotine (Nicotine Inhaler*) 10 mg INH Q2H PRN PRN Reason: CRAVING Nicotine Polacrilex (Nicotine Gum*) 2 mg PO Q2H PRN PRN Reason: CRAVING Last Admin: 04/06/18 10:10 Dose: 2 mg Olanzapine (Zyprexa Tab*) 10 mg PO BID [facility] Last Admin: 04/06/18 10:09 Dose: 10 mg
[2018-04-06] MEDS ORDERED: Divalproex DR TAB(*) 500 MG PO SCH (21:00)
[2018-04-06] MEDS: diPHENhydraMINE PO* 50 MG PO PRN (22:06)
[2018-04-06] MEDS: LORazepam TAB(*) 1 MG PO PRN (22:40)
[2018-04-07] MEDS: Haloperidol TAB* 5 MG PO PRN (01:33)
[2018-04-07 07:52] VITALS: BP 135/73
[2018-04-07] MEDS: OLANzapine TAB* 10 MG PO SCH (08:29)
[2018-04-07] MEDS: hydrOXYzine HCL TAB* 50 MG PO SCH (08:31)
[2018-04-07] MEDS: Vitamin THERAPEUTIC TAB PO SCH (08:31)
[2018-04-07] MEDS ORDERED: Divalproex DR TAB(*) 250 MG PO SCH (09:00)
--- NOTE | 2018-04-07 12:50 | DS ---
Subjective - Subjective Service Types: [id number] [facility] Day Mgmt simple under 30 min Discharge Date: 04/07/18 Subjective: JUSTIFICATION FOR ADMISSION: Patient presented to emergency room with suicidal ideation and plan, worsening of his mood instability, suicidal thoughts and delusional thinking. He requires inpatient psychiatric admission in order to provide treatment and stabilization as he is a danger to himself. CHIEF COMPLAINT: "I was feeling suicidal; Monik mother is mean to me HISTORY OF THE PRESENT ILLNESS: Patient is 23 a y/o homosexual male, single, living with his father like figures, currently unemployed, with history of psychotic and manic symptoms. Patient was admitted to inpatient unit for worsening of his mood instability and suicidal thoughts with psychotic and paranoid/persecutory delusions. Patient has been not be compliant with his outpatient mental health treatment and medications for months. Patient reports that he has been erratic at home, talking to self, hyperverbal, loud, restless, not sleeping, increased goal directed activity, paranoid towards others at the house. Patient reports that marijuana works for him and brings down his anxiety and paranoia. Patient reports that he is not getting enough from [facility] as he cannot afford it anymore. Patient reportedly has been struggling with his financial issues as he has not been working and has estranged relationship with his biological mother and father. Patient reports manic symptoms as mentioned above. Patient reports psychotic symptoms of mostly his delusional thinking and auditory hallucinations that belittles him. Patient reported suicidal ideation when he was driving with Sachin to that hospital. Patient continued to exhibit behavior that is unpredictable and impulsive but has been seclusive on the unit and reported feeling better as he smoked a lot before coming in last night. Patient focused on Effexor and Zyprexa that has helped him in the past and wants to be restarted on that. Patient also asking provider to see his video that sachin has taken and he will want it to be sent to social security office and when asked why he stated that he has always been on disability. PAST PSYCHIATRIC HISTORY: Patient has history of multiple inpatient psychiatric hospitalization due to both manic/psychotic symptoms and depression. Patient has history of intermittent outpatient psychiatric treatment for his mood and psychosis but reportedly has not been in any treatment for last 2 years. Patient has been on multiple medication trial in the past and reports responding to Effexor 75 mg and Zyprexa 20 mg. Patient reported SSRI did not help him in the past. Patient has history of suicidal thoughts and attempts in the past by either cutting wrist or trying to hang self leading to hospitalizations. Patient reports most were related to relationship difficulties. Patient has history of no homicidal threats, intent or attempt. Patient has history of aggressive and agitated behavior when decompensates. No access to firearm reported. SUBSTANCE ABUSE HISTORY: Patient uses cannabis regularly unspecified amounts daily. Urine toxicology was positive for cannabis. Last use was before presenting to E.D. PAST MEDICAL HISTORY: No active medical problems ALLERGIES: NKA FAMILY PSYCHIATRIC HISTORY: Patient has family history of anxiety/depression in mother but feels that his father has schizophrenia. Patient has history of substance abuse in family. No reported suicide in the family. FAMILY/PSYCHOSOCIAL HISTORY: Patient currently lives with his father like figures. Patient is not . Patient has no children. Patient has estranged relationship with his parents. Parents are not together. Patient has not seen his father since he was very young and just speaks to him on the phone. Patient education level is dropped out from 11th grade and reports that he had difficulty with mathematics and never pursued his further education. Patient support system includes his housemates and his friends. REVIEW OF SYSTEMS: Patients review of symptoms was negative for any physical complaint. But patient has been seclusive and depressed in his mood, vitals with in normal limits. Patients ED physical exam was reviewed which is grossly normal with no active medical problem. Physical Exam Summary as per E.D: Appearance: Well appearing, no pain distress Skin: warm, dry, reflects adequate perfusion Head/face: normal Eyes: EOMI, CHAYO ENT: normal Neck: supple, non-tender Respiratory: CTA, breath sounds present Cardiovascular: RRR, pulses symmetrical Abdomen: non-tender, soft Bowel: present Musculoskeletal: normal, strength/ROM intact Neuro: normal, sensory motor intact, A&Ox3 MENTAL STATUS EXAMINATION ON ADMISSION: Appearance: unkempt, poor eye contact, dressed in hospital gown, lying on his bed Behavior: superficially cooperative Gait: normal Abnormal motor activity: restless, hyperactive Speech: loud, hyperverbal, increased rate and rhythm Mood: depressed Affect: labile Thought process: tangential to circumstantial Thought Content: Suicidal/Homicidal ideation: denies Delusions: paranoid toward everns mother Obsessions: none Phobia: none Perceptual disturbance: none Attention: fair Orientation: grossly intact Concentration: limited Memory: fair Insight: limited Judgment: fair Impulse control: poor as per recent evidence Objective - Appearance Appearance: Healthy Appearing Hygiene: Normal Grooming: Fairly Well Kept - Behavior Psychomotor Activities: Normal Exhibits Abnormal Movement: No - Attitude and Relatedness Attitude and Relatedness: Cooperative Eye Contact: Fair - Speech Quality: Unpressured Latencies: Normal Quantity: Appropriate - Mood Patient's Decription of Mood: "Good" - Affect Observed Affect: Good Affect Consistent with: Euthymia - Thought Process Patient's Thought Process: Coherent Thought Content: No Passive Wish, No Suicidal Planning, No Homicidal Ideation, No Paranoid Ideation - Sensorium Experiencing Hallucinations: No, Sensorium is Clear Type of Hallucinations: Visual: No, Auditory: No, Command: No - Level of Consciousness Level of Consciousness: Alert Orientation: Yes Intact, Yes Orientated to Time, Yes Orientated to Place, Yes Orientated to Person - Impulse Control Impulse Control: Intact - Insight and Judgement Insight and Judgement: Fair - Medication Management Medication Management Adherence: Yes Treatment Course & Assessment Clinical Course & Impression: Patient with history of mood disorder and psychotic symptoms with cannabis abuse. Patient currently admitted due to worsening of mood and behavioral dysregulation with suicidal thoughts. Patient was a danger to self and others if discharged hence was stabilized on inpatient unit with medication adjustments and therapy. Patient was admitted to U on Q 15 min observation. Patient was admitted on voluntary admission status but was changed to involuntary due to his poor insight and judgment and lack of impulse control, was not cooperative with treatment. Patient was encouraged to integrate into the milieu. Patient gave informed consent start Zyprexa that has helped him in the past with Effexor. Given his presentation of manic and psychotic symptoms, Effexor was on hold and patient was started on Zyprexa 10 mg HS. Patient was also started on Hydroxyzine 50mg to help with sleep and anxiety. Patient was also started on Haldol 5mg/Ativan 2 mg/Benadryl 50mg PRN for agitation/anxiety and EPS. Patient was monitored for improvement and side effects. Patient during initial stay at the hospital was very loud agitated and aggressive, pacing on the floor, illogical and delusional towards others on the unit including staff and patients. Patient wanting to be discharged. Patient sleeping was disturbed, extremely labile, internally preoccupied, restless, hyperverbal, hyperactive, disorganized, not sleeping well. Patient eating was fine, brief group attendance. Patient was uncooperative with staff, was pounding his fist on the oliveros, very volatile, loud and aggressive was danger to self and others. Patient behavior was out of control, hence was offered PO Haldol/Benadryl and Ativan and took it. Patient's medications were adjusted after informed consent with increment in Zyprexa 10 mg BID. Patient was compliant with his medications, no reported side effects. Patient was still manic, irritable, impulsive, hyperactive, restless, hyperverbal, loud , easily distractable, illogical and delusional towards others. Patient wanting to be discharged. Patient sleeping was somewhat improving with his appetite. Patient has been uncooperative with staff, with his unpredictable/impulsive behavior. Patient behavior was out of control, running in the hallway, was asking for a medications to "release his energy". Patient was offered PO Depakote 750 mg BID for manic symptoms which he agreed to after education and clarification about medication. Patietn Depakote level came back around 73. Patient Depakote was increased to 750 mg QAM and 1000 mg QHS. Hydroxyzine 50 mg BID was continued to help with anxiety and restlessness. Patient improved in his mood and behavior. Patient thinking was more organized. Patient was taking his medications regularly and reported no side effects. Patient was stable, denied any si/hi, no delusions reported, no hallucinations. Patient was not a danger to self and others and was caring for self. Patient was requesting discharge and did not meet the criteria for involuntary inpatient hospitalization. Hence after discussing with team patient was discharged with plan to follow up outpatient mental health treatment. Patient was counseled about marijuana use but was not interested at this time. Inpatient DSM-V Dx: F25.8 Discharge Planning - Discharge Planning Discharge Plan: Outpatient Follow Up Recommendations for Continuing Care: Medication Management, Psychotherapy Medications: Discharge Medications Divalproex Sodium (Depakote Dr Tab(*)) 1,000 mg PO BEDTIME [facility] Last Admin: 04/06/18 20:47 Dose: 1,000 mg Divalproex Sodium (Depakote Dr Tab(*)) 750 mg PO QAM [facility] Last Admin: 04/07/18 08:29 Dose: 750 mg Hydroxyzine HCl (Atarax Tab*) 50 mg PO BID [facility] Last Admin: 04/07/18 08:31 Dose: Not Given Olanzapine (Zyprexa Tab*) 10 mg PO BID [facility] Last Admin: 04/07/18 08:29 Dose: 10 mg Patient provided 2 weeks of prescription. Discharge Planning: Prescriptions provided for discharge [x] Yes [] No Follow up care details as per social work arrangements. Patient response to discharge plan: [x] eager for discharge [] agreeable with discharge plan [] ambivalent about discharge [] disagrees with discharge today
== END 2018-04-07 15:00 | disposition home or self-care (01) | DRG 750 ==
LOC: ED 03:15 → BSU 05:39
PROVIDERS: ADMIT Psychiatry & Neurology Psychiatry; ATTEND Psychiatry & Neurology Psychiatry
DX: F25.8 Other schizoaffective disorders (principal); R45.851 Suicidal ideations; F12.159 Cannabis abuse with psychotic disorder, unspecified; Z81.8 Family history of other mental and behavioral disorders; Z81.3 Family history of other psychoactive substance abuse and dependence
CPT/HCPCS: 36415; 80164; 80307; 99222; 99231; 99232; 99284; A9270-GY; J1200; J1630; J2060

== ENCOUNTER 2019-04-20 00:43 | Inpatient (IN) | payer BC, OTHER ==
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
[2019-04-20 01:50] LABS: Urine Benzodiazepine Screen None Detected (None Detect); Urine Opiates Screen None Detected (None Detect)
[2019-04-20 02:07] LABS: Activated Partial Thrombo Time 34.9 seconds (26.0-38.0); INR 0.99 (0.82-1.09)
[2019-04-20 02:09] LABS: Alcohol < 10 mg/dL (<10)
[2019-04-20 02:10] LABS: ALT 23 U/L (7-52); AST 23 U/L (13-39); Albumin 4.6 g/dL (3.2-5.2); Albumin/Globulin Ratio 1.7 (1-3); Alkaline Phosphatase 81 U/L (34-104); Anion Gap 9 mmol/L (2-11); Blood Urea Nitrogen 18 mg/dL (6-24); CO2 Carbon Dioxide 23 mmol/L (22-32); Calcium 9.6 mg/dL (8.6-10.3); Chloride 105 mmol/L (101-111); EGFR African American 109.3 (>60); EGFR Non-African American 90.3 (>60); Globulin 2.7 g/dL (2-4); Glucose 81 mg/dL (70-100); Magnesium 2.3 mg/dL (1.9-2.7); Potassium 4.1 mmol/L (3.5-5.0); Sodium 137 mmol/L (135-145); Total Protein 7.3 g/dL (6.4-8.9)
[2019-04-20 02:14] LABS: Hematocrit 46 % (42-52); Hemoglobin 15.9 g/dL (14.0-18.0); Mean Corpuscular HGB Conc 35 g/dL (31-36); Mean Corpuscular Hemoglobin 32 pg (27-31); Mean Corpuscular Volume 93 fL (80-94); Red Blood Count 4.94 10^6 /uL (4.18-5.48); Red Cell Distribution Width 14 % (10-15); White Blood Count 14.8 10^3/uL (3.5-10.8)
[2019-04-20 02:52] LABS: ABS Basophils 0.1 10^3/ul (0-0.2); ABS Eosinophils 0.1 10^3/ul (0-0.6); ABS Lymphocytes 3.9 10^3/ul (1.0-4.8); ABS Neutrophils 9.8 10^3/ul (1.5-7.7); Eosinophil % 0.8 %; Lymphocyte % 26.1 %; Mean Platelet Volume 9.7 fL (7.4-10.4); Nucleated Red Blood Cells % 0.1; Platelet Count 202 10^3/uL (150-450)
[2019-04-20] MEDS ORDERED: Nicotine* 2MG (FRUIT FLAVOR) GUM PO PRN (05:24)
[2019-04-20] MEDS ORDERED: Al Hydrox/Mg Hydrox/Simet LIQ* 30 ML UDC PO PRN (05:24)
[2019-04-20] MEDS ORDERED: Acetaminophen TAB* 325 MG PO PRN (05:24)
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
[2019-04-20] MEDS: Ibuprofen TAB* 400 MG PO PRN (08:50)
[2019-04-20] MEDS: Vitamin THERAPEUTIC TAB PO SCH (08:50)
[2019-04-20] MEDS: Divalproex DR TAB(*) 500 MG PO SCH ×2 (11:00→21:13)
[2019-04-20] MEDS: Haloperidol TAB* 5 MG PO PRN (15:46)
[2019-04-20] MEDS ORDERED: OLANzapine TAB* 10 MG PO SCH (21:00)
[2019-04-20] MEDS: OLANzapine TAB* 5 MG PO SCH (21:14)
[2019-04-20] MEDS: traZODone TAB* 100 MG PO SCH (21:15)
--- NOTE | 2019-04-21 10:41 | PN ---
Subjective - Subjective Date of Service: 04/21/19 Service Type: 23955 Hosp care 35 min high complexity Subjective: Nursing Report: Patient was visible on unit, argument with peer. Slept overnight. He is not attending group activities. CC: "Fine" Patient was seen and evaluated today. The patient reported he continues to hear voices. He reported having adequate appetite and sleep. Patient got into a argument with another peer on the unit. Patient reported that he is tolerating medications without side effects. Objective - General Observations Appearance: Disheveled Appears Stated Age: Yes Stature: WNL Posture: Slumped Eye Contact: Average Behavior/Activity: WNL, Accelerated - Interaction Observations Attitude Towards Examiner: Mistrustful Stated Mood: Dysphoric Affect: Blunted Speech Pattern/Tone: Rambling Thought Process: Loose Associations Perception: WNL, Depersonalization Thought Content: Grandiose Thought Process: Lethality: Paranoid Ideation Hallucination Type: Auditory Delusion Type: Persecution - Cognitive Function Orientation: A&O x 4 Level of Consciousness: Awake - Medication Compliance Cooperative with Inpatient Medication Regimen: Yes - Group Participation Participates in Group Activities: No Assessment - Assessment Merits Inpatient Hospitalization: For Immediate Safety Clinical Impression: 24 year old with history of Schizoaffective disorder, bipolar type, Borderline personality disorder, Cannabis use disorder, PTSD came to the hospital and was admitted to the BSU at [facility] for features of psychosis. Plan - Plan Treatment Plan: Name: REAL GIRON Birthdate: 1995 [id number] #Q15 minute observation. # The patient requires psychiatric inpatient admission at this time to assure safety, receive treatment and work toward stabilization. # EKG ordered for risk of QT prolongation of antipsychotic medication. # Obtain collateral information once release is signed. # Obtain hospital records from [facility]. # Collaboration with Financial Systems Analyst Caro Kay # VA level 106 # Will consider invega long acting injection once past records are reviewed # Increase zyprexa 15mg qhs. # Currently homeless Tobacco use disorder: Nicotine supplement offered and put in place. #Goals before discharge include: Stabilization of psychotic features. Tentative Discharge: Pending psychiatric stabilization Sodium 137 mmol/L (135-145) 04/20/19 01:27 Potassium 4.1 mmol/L (3.5-5.0) 04/20/19 01:27 BUN 18 mg/dL (6-24) 04/20/19 01:27 Creatinine 1.00 mg/dL (0.67-1.17) 04/20/19 01:27 Calcium 9.6 mg/dL (8.6-10.3) 04/20/19 01:27 Magnesium 2.3 mg/dL (1.9-2.7) 04/20/19 01:27 AST 23 U/L (13-39) 04/20/19 01:27 ALT 23 U/L (7-52) 04/20/19 01:27 Vital Signs Temp Pulse Resp BP Pulse Ox 97.5 F 52 16 140/71 100 04/21/19 09:19 04/21/19 09:19 04/21/19 09:19 04/21/19 09:19 04/21/19 09:19 Continued Medication Management: Continue Outpt Medication Medications: Current Medications Acetaminophen (Tylenol Tab*) 650 mg PO Q4H PRN PRN Reason: PAIN or TEMP > 101 F Al Hydrox/Mg Hydrox/Simethicone (Maalox Plus*) 30 ml PO Q4H PRN PRN Reason: INDIGESTION Divalproex Sodium (Depakote Dr Tab(*)) 1,000 mg PO BID [facility] Last Admin: 04/20/19 21:13 Dose: 1,000 mg Haloperidol (Haldol Tab*) 5 mg PO Q6H PRN PRN Reason: AGITATION Last Admin: 04/20/19 15:46 Dose: 5 mg Ibuprofen (Motrin Tab*) 400 mg PO Q6H PRN PRN Reason: PAIN - MODERATE Last Admin: 04/20/19 08:50 Dose: 400 mg Lorazepam (Ativan Tab(*)) 2 mg PO Q6H PRN PRN Reason: ANXIETY Multivitamins (Theragran Tab*) 1 tab PO DAILY [facility] Last Admin: 04/20/19 08:50 Dose: 1 tab Nicotine Polacrilex (Nicotine Gum*) 2 mg PO Q2H PRN PRN Reason: CRAVINGS Olanzapine (Zyprexa Tab*) 15 mg PO BEDTIME [facility] Last Admin: 04/20/19 21:14 Dose: 15 mg Trazodone HCl (Desyrel Tab*) 100 mg PO BEDTIME [facility] Last Admin: 08/20/19 21:15 Dose: 100 mg - Discharge Plan Discharge Plan: Inpatient Hospitalization
[2019-04-21] MEDS: Vitamin THERAPEUTIC TAB PO SCH (11:35)
[2019-04-21] MEDS: Divalproex DR TAB(*) 500 MG PO SCH ×2 (11:35→20:17)
[2019-04-21] MEDS: traZODone TAB* 100 MG PO SCH (20:18)
[2019-04-21] MEDS: OLANzapine TAB* 5 MG PO SCH (20:18)
[2019-04-21] MEDS: Haloperidol TAB* 5 MG PO PRN (21:55)
--- NOTE | 2019-04-22 10:38 | PN ---
Subjective - Subjective Date of Service: 04/22/19 Service Type: 21137 Hosp care 35 min high complexity Subjective: Nursing Report: Patient mostly secluded to his room, Slept overnight. He is not attending group activities. CC: "Fine" Patient was seen and evaluated today. The patient reported he feels safe on the unit and is interacting with peers. He reported having adequate appetite and sleep. Per nursing he ripped up a towel. Patient reported that he is tolerating medications without side effects. Objective - General Observations Appearance: Disheveled Appears Stated Age: Yes Stature: WNL Posture: Slumped Eye Contact: Avoidant Behavior/Activity: Accelerated - Interaction Observations Attitude Towards Examiner: Mistrustful Stated Mood: Irritable, Anxious Affect: Blunted Speech Pattern/Tone: Clear Thought Process: Loose Associations Perception: WNL, Derealization Thought Content: Self-Deprecatory Thought Process: Lethality: Paranoid Ideation Hallucination Type: Auditory Delusion Type: Persecution - Cognitive Function Orientation: A&O x 4 Level of Consciousness: Awake Judgment Within Normal Limits: No - Medication Compliance Cooperative with Inpatient Medication Regimen: Yes - Group Participation Participates in Group Activities: No Assessment - Assessment Merits Inpatient Hospitalization: For Immediate Safety Clinical Impression: 24 year old with history of Schizoaffective disorder, bipolar type, Borderline personality disorder, Cannabis use disorder, PTSD came to the hospital and was admitted to the BSU at [facility] for features of psychosis. Plan - Plan Treatment Plan: Name: REAL GIRON Birthdate: 1995 [id number] #Q15 minute observation. # The patient requires psychiatric inpatient admission at this time to assure safety, receive treatment and work toward stabilization. # EKG ordered for risk of QT prolongation of antipsychotic medication. # Obtain collateral information once release is signed. # Collaboration with Extension Work Instructor Caro Kay # [place] level 106 # To get records from past admission @ [facility] # Increase zyprexa 15mg qhs. # Currently homeless Tobacco use disorder: Nicotine supplement offered and put in place. #Goals before discharge include: Stabilization of psychotic features. Tentative Discharge: Pending psychiatric stabilization Vital Signs Temp Pulse Resp BP Pulse Ox 97.5 F 52 18 140/71 100 04/21/19 09:19 04/21/19 09:19 04/21/19 21:55 04/21/19 09:19 04/21/19 09:19 Sodium 137 mmol/L (135-145) 04/20/19 01:27 Potassium 4.1 mmol/L (3.5-5.0) 04/20/19 01:27 BUN 18 mg/dL (6-24) 04/20/19 01:27 Creatinine 1.00 mg/dL (0.67-1.17) 04/20/19 01:27 Calcium 9.6 mg/dL (8.6-10.3) 04/20/19 01:27 Magnesium 2.3 mg/dL (1.9-2.7) 04/20/19 01:27 AST 23 U/L (13-39) 04/20/19 01:27 ALT 23 U/L (7-52) 04/20/19 01:27 Continued Medication Management: Continue Outpt Medication Medications: Current Medications Acetaminophen (Tylenol Tab*) 650 mg PO Q4H PRN PRN Reason: PAIN or TEMP > 101 F Al Hydrox/Mg Hydrox/Simethicone (Maalox Plus*) 30 ml PO Q4H PRN PRN Reason: INDIGESTION Divalproex Sodium (Depakote Dr Tab(*)) 1,000 mg PO BID [facility] Last Admin: 04/21/19 20:17 Dose: 1,000 mg Haloperidol (Haldol Tab*) 5 mg PO Q6H PRN PRN Reason: AGITATION Last Admin: 04/21/19 21:55 Dose: 5 mg Ibuprofen (Motrin Tab*) 400 mg PO Q6H PRN PRN Reason: PAIN - MODERATE Last Admin: 04/20/19 08:50 Dose: 400 mg Lorazepam (Ativan Tab(*)) 2 mg PO Q6H PRN PRN Reason: ANXIETY Multivitamins (Theragran Tab*) 1 tab PO DAILY [facility] Last Admin: 04/21/19 11:35 Dose: 1 tab Nicotine Polacrilex (Nicotine Gum*) 2 mg PO Q2H PRN PRN Reason: CRAVINGS Olanzapine (Zyprexa Tab*) 15 mg PO BEDTIME [facility] Last Admin: 04/21/19 20:18 Dose: 15 mg Trazodone HCl (Desyrel Tab*) 100 mg PO BEDTIME [facility] Last Admin: 04/21/19 20:18 Dose: 100 mg - Discharge Plan Discharge Plan: Inpatient Hospitalization
[2019-04-22] MEDS: Vitamin THERAPEUTIC TAB PO SCH (10:45)
[2019-04-22] MEDS: Divalproex DR TAB(*) 500 MG PO SCH ×2 (10:45→21:21)
[2019-04-22] MEDS: Ibuprofen TAB* 400 MG PO PRN (19:38)
[2019-04-22] MEDS: LORazepam TAB(*) 1 MG PO PRN (19:39)
[2019-04-22] MEDS: Haloperidol TAB* 5 MG PO PRN (19:40)
[2019-04-22] MEDS: OLANzapine TAB* 5 MG PO SCH (21:20)
[2019-04-22] MEDS: traZODone TAB* 100 MG PO SCH (21:21)
[2019-04-23] MEDS: Venlafaxine EXT RELEASE CAP* 75 MG PO SCH (11:35)
[2019-04-23] MEDS: Vitamin THERAPEUTIC TAB PO SCH (11:35)
[2019-04-23] MEDS: Divalproex DR TAB(*) 500 MG PO SCH ×2 (11:35→19:29)
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
[2019-04-23 17:17] LABS: HDL Cholesterol 28.8 mg/dL
[2019-04-23] MEDS: Haloperidol TAB* 5 MG PO PRN (17:23)
[2019-04-23] MEDS: LORazepam TAB(*) 1 MG PO PRN (17:24)
[2019-04-23 19:03] LABS: Hepatitis C Antibody Negative (Negative)
[2019-04-23] MEDS: traZODone TAB* 100 MG PO SCH (19:29)
[2019-04-23] MEDS ORDERED: diPHENhydraMINE PO* 50 MG PO ONE (20:00)
[2019-04-23] MEDS ORDERED: Haloperidol TAB* 5 MG PO ONE (20:00)
[2019-04-23] MEDS ORDERED: Paliperidone ER TAB* 6 MG TAB.ER PO SCH (21:00)
[2019-04-24] MEDS: Haloperidol TAB* 5 MG PO PRN ×2 (05:08→22:02)
[2019-04-24] MEDS: Venlafaxine EXT RELEASE CAP* 75 MG PO SCH (12:17)
[2019-04-24] MEDS: Divalproex DR TAB(*) 500 MG PO SCH ×2 (12:17→21:05)
[2019-04-24] MEDS: Vitamin THERAPEUTIC TAB PO SCH (12:17)
--- NOTE | 2019-04-24 15:43 | PN ---
Subjective - Subjective Date of Service: 04/24/19 Subjective: Real reports resolution of previous AH, he denies delusions, describers restful sleep, he denies SI/HI, urhes for sib or A/VH or side effects from prescribed effexor-r. Per nursing staff since his attempt to elope yesterday afternoon. he has been in good behavioral control. Objective - General Observations Appearance: Neat Appears Stated Age: Yes Stature: WNL Posture: WNL Eye Contact: Avoidant Behavior/Activity: WNL - Interaction Observations Attitude Towards Examiner: Defensive Stated Mood: Euthymic Affect: Restricted Speech Pattern/Tone: Clear Thought Process: Coherent Perception: WNL Thought Content: WNL Hallucination Type: None Delusion Type: None - Cognitive Function Orientation: A&O x 4 Level of Consciousness: Alert Cognition: WNL Estimated Intelligence: Normal Insight: Difficulty Acknowledging Presence of Psyciatric Problems Judgment Within Normal Limits: No Ability to Make Reasonable Decisions: Mildly Impaired - Medication Compliance Cooperative with Inpatient Medication Regimen: Yes - Group Participation Participates in Group Activities: No Assessment - Assessment Clinical Impression: 24 year old with history of Schizoaffective disorder, bipolar type, Borderline personality disorder, Cannabis use disorder, PTSD came to the hospital and was admitted to the BSU at [facility] for features of psychosis. Stabilizing in this structured setting. Plan - Plan Treatment Plan: Name: REAL GIRON Birthdate: 1995 [id number] #Q30 minute observation. # The patient requires psychiatric inpatient admission at this time to assure safety, receive treatment and work toward stabilization. # EKG ordered for risk of QT prolongation of antipsychotic medication. # Obtain collateral information once release is signed. # Collaboration with Orchid Superintendent Caro Kay # VA level 106 # To get records from past admission @ [facility] # D/C zyprexa # Start invega 6mg at bedtime # Start effexor 75mg daily monitor for rj and d/c if signs emerge # Plan to give Invega 234mg Friday # Currently homeless # HIV, RPR and Hep C labs ordered Tobacco use disorder: Nicotine supplement offered and put in place. #Goals before discharge include: Stabilization of psychotic features. Tentative Discharge: Pending psychiatric stabilization Sodium 137 mmol/L (135-145) 04/20/19 01:27 Potassium 4.1 mmol/L (3.5-5.0) 04/20/19 01:27 BUN 18 mg/dL (6-24) 04/20/19 01:27 Creatinine 1.00 mg/dL (0.67-1.17) 04/20/19 01:27 Calcium 9.6 mg/dL (8.6-10.3) 04/20/19 01:27 Magnesium 2.3 mg/dL (1.9-2.7) 04/20/19 01:27 AST 23 U/L (13-39) 04/20/19 01:27 ALT 23 U/L (7-52) 04/20/19 01:27 Vital Signs Temp Pulse Resp BP Pulse Ox 98.1 F 53 16 110/65 95 04/23/19 08:00 04/23/19 08:00 04/23/19 11:11 04/23/19 08:00 04/23/19 08:00 Medications: Current Medications Acetaminophen (Tylenol Tab*) 650 mg PO Q4H PRN PRN Reason: PAIN or TEMP > 101 F Al Hydrox/Mg Hydrox/Simethicone (Maalox Plus*) 30 ml PO Q4H PRN PRN Reason: INDIGESTION Divalproex Sodium (Depakote Dr Tab(*)) 1,000 mg PO BID [facility] Last Admin: 04/24/19 12:17 Dose: 1,000 mg Haloperidol (Haldol Tab*) 5 mg PO Q6H PRN PRN Reason: AGITATION Last Admin: 04/24/19 05:08 Dose: 5 mg Ibuprofen (Motrin Tab*) 400 mg PO Q6H PRN PRN Reason: PAIN - MODERATE Last Admin: 04/22/19 19:38 Dose: 400 mg Lorazepam (Ativan Tab(*)) 2 mg PO Q6H PRN PRN Reason: ANXIETY Last Admin: 04/23/19 17:24 Dose: 2 mg Multivitamins (Theragran Tab*) 1 tab PO DAILY [facility] Last Admin: 04/24/19 12:17 Dose: 1 tab Nicotine Polacrilex (Nicotine Gum*) 2 mg PO Q2H PRN PRN Reason: CRAVINGS Olanzapine (Zyprexa Tab*) 15 mg PO BEDTIME [facility] Paliperidone Palmitate (Invega Sustenna*) 234 mg IM ONCE ONE Stop: 04/26/19 12:46 Trazodone HCl (Desyrel Tab*) 100 mg PO BEDTIME [facility] Last Admin: 04/23/19 19:29 Dose: 100 mg
[2019-04-24] MEDS: OLANzapine TAB* 5 MG PO SCH (21:06)
[2019-04-24] MEDS: traZODone TAB* 100 MG PO SCH (21:08)
[2019-04-24] MEDS: LORazepam TAB(*) 1 MG PO PRN (22:03)
[2019-04-25] MEDS: Divalproex DR TAB(*) 500 MG PO SCH ×2 (11:37→20:23)
[2019-04-25] MEDS: Vitamin THERAPEUTIC TAB PO SCH (11:37)
[2019-04-25] MEDS: LORazepam TAB(*) 1 MG PO PRN (18:55)
[2019-04-25] MEDS: Haloperidol TAB* 5 MG PO PRN (18:55)
[2019-04-25] MEDS: Ibuprofen TAB* 400 MG PO PRN (18:55)
[2019-04-25] MEDS: OLANzapine TAB* 5 MG PO SCH (20:21)
[2019-04-25] MEDS: traZODone TAB* 100 MG PO SCH (20:23)
[2019-04-26] MEDS: Divalproex DR TAB(*) 500 MG PO SCH ×2 (10:01→20:31)
[2019-04-26] MEDS: Vitamin THERAPEUTIC TAB PO SCH (10:01)
--- NOTE | 2019-04-26 10:44 | PN ---
Subjective - Subjective Date of Service: 04/26/19 Service Type: 08391 Hosp care 35 min high complexity Subjective: Nursing Report: Patient was visible on unit, Patient attempted to elope Friday CC: "Okay" Patient was seen and evaluated in the common room. The patient ate breakfast this morning. He reported having adequate appetite and sleep. Per nursing report the patient attempted to elope from the unit on Friday. Patient reported that he is tolerating medications without side effects. Objective - General Observations Appearance: Disheveled Appears Stated Age: Yes Stature: WNL Posture: Slumped Eye Contact: Average Behavior/Activity: Accelerated - Interaction Observations Attitude Towards Examiner: Cooperative Stated Mood: Elevated Affect: Blunted Speech Pattern/Tone: Excessive Thought Process: Filght of Ideas Perception: WNL Thought Content: Grandiose Thought Process: Lethality: Paranoid Ideation Hallucination Type: Auditory Delusion Type: None - Cognitive Function Orientation: A&O x 4 Level of Consciousness: Awake - Medication Compliance Cooperative with Inpatient Medication Regimen: Yes - Group Participation Participates in Group Activities: No Assessment - Assessment Merits Inpatient Hospitalization: For Immediate Safety Clinical Impression: 24 year old with history of Schizoaffective disorder, bipolar type, Borderline personality disorder, Cannabis use disorder, PTSD came to the hospital and was admitted to the BSU at [facility] for features of psychosis. Stabilizing in this structured setting. Plan - Plan Treatment Plan: Name: REAL GIRON Birthdate: 1995 [id number] #Q30 minute observation. # The patient requires psychiatric inpatient admission at this time to assure safety, receive treatment and work toward stabilization. # EKG ordered for risk of QT prolongation of antipsychotic medication. # Obtain collateral information once release is signed. # Collaboration with Flow Trader Caro Kay # [facility] records # Zyprexa 15mg qhs # VA level 36 # Discontinue effexor # Plan to receive Invega 234mg long acting injection on 04/27/19 Eligible to receive Invega 156mg on 05/01/19. Next due on 05/25/19. # Currently homeless- plan to refer to [facility] upon discharge # HIV pending # RPR and Hep C labs negative Tobacco use disorder: Nicotine supplement offered and put in place. #Goals before discharge include: Stabilization of psychotic features. Tentative Discharge: Pending psychiatric stabilization Sodium 137 mmol/L (135-145) 08/20/19 01:27 Potassium 4.1 mmol/L (3.5-5.0) 04/20/19 01:27 BUN 18 mg/dL (6-24) 04/20/19 01:27 Creatinine 1.00 mg/dL (0.67-1.17) 04/20/19 01:27 Hemoglobin A1c 5.5 % (4.0-5.6) 04/23/19 13:30 Calcium 9.6 mg/dL (8.6-10.3) 04/20/19 01:27 Magnesium 2.3 mg/dL (1.9-2.7) 04/20/19 01:27 AST 23 U/L (13-39) 04/20/19 01:27 ALT 23 U/L (7-52) 04/20/19 01:27 Triglycerides 237 mg/dL 04/23/19 13:30 Cholesterol 124 mg/dL 04/23/19 13:30 LDL Cholesterol 48 mg/dL 04/23/19 13:30 Vital Signs Temp Pulse Resp BP Pulse Ox 98.3 F 54 16 113/61 98 04/26/19 08:00 04/26/19 08:00 04/26/19 08:00 04/26/19 08:00 04/26/19 08:00 Continued Medication Management: Continue Outpt Medication Medications: Current Medications Acetaminophen (Tylenol Tab*) 650 mg PO Q4H PRN PRN Reason: PAIN or TEMP > 101 F Al Hydrox/Mg Hydrox/Simethicone (Maalox Plus*) 30 ml PO Q4H PRN PRN Reason: INDIGESTION Divalproex Sodium (Depakote Dr Tab(*)) 1,000 mg PO BID [facility] Last Admin: 04/26/19 10:01 Dose: 1,000 mg Haloperidol (Haldol Tab*) 5 mg PO Q6H PRN PRN Reason: AGITATION Last Admin: 04/25/19 18:55 Dose: 5 mg Ibuprofen (Motrin Tab*) 400 mg PO Q6H PRN PRN Reason: PAIN - MODERATE Last Admin: 04/25/19 18:55 Dose: 400 mg Lorazepam (Ativan Tab(*)) 2 mg PO Q6H PRN PRN Reason: ANXIETY Last Admin: 04/25/19 18:55 Dose: 2 mg Multivitamins (Theragran Tab*) 1 tab PO DAILY [facility] Last Admin: 04/26/19 10:01 Dose: 1 tab Nicotine Polacrilex (Nicotine Gum*) 2 mg PO Q2H PRN PRN Reason: CRAVINGS Olanzapine (Zyprexa Tab*) 15 mg PO BEDTIME [facility] Last Admin: 04/25/19 20:21 Dose: 15 mg Paliperidone Palmitate (Invega Sustenna*) 234 mg IM ONCE ONE Stop: 04/26/19 12:46 Trazodone HCl (Desyrel Tab*) 100 mg PO BEDTIME [facility] Last Admin: 04/25/19 20:23 Dose: 100 mg - Discharge Plan Discharge Plan: Inpatient Hospitalization Outpatient Program: [facility]
[2019-04-26] MEDS: LORazepam TAB(*) 1 MG PO PRN ×2 (15:23→21:42)
[2019-04-26] MEDS: Haloperidol TAB* 5 MG PO PRN (16:50)
[2019-04-26] MEDS: OLANzapine TAB* 5 MG PO SCH (20:32)
[2019-04-26] MEDS: traZODone TAB* 100 MG PO SCH (20:33)
[2019-04-26] MEDS ORDERED: OLANzapine TAB* 5 MG PO SCH (21:00)
[2019-04-27 08:09] LABS: HIV-1 Ab Differentiation,P Negative (Negative); HIV-2 Ab Differentiation,P Negative (Negative)
[2019-04-27] MEDS: Vitamin THERAPEUTIC TAB PO SCH (09:58)
[2019-04-27] MEDS: Divalproex DR TAB(*) 500 MG PO SCH ×2 (09:58→20:19)
--- NOTE | 2019-04-27 14:29 | PN ---
Subjective - Subjective Date of Service: 04/27/19 Service Type: [id number] Hosp care 35 min high complexity Subjective: Nursing Report: Patient was visible on unit, Patient slept overnight. CC: "Fine" Patient was seen and evaluated in the common room. The patient reported plans to stick around [place]. He is in agreement with going to [facility] clinic. The patient ate breakfast this morning. He reported having adequate appetite and sleep. Per nursing report no overnight incidents. Patient reported that he is tolerating medications without side effects. Objective - General Observations Appearance: Disheveled, Neat Appears Stated Age: Yes Stature: WNL Posture: WNL Eye Contact: Average Behavior/Activity: WNL - Interaction Observations Attitude Towards Examiner: Cooperative Stated Mood: Dysphoric Affect: Blunted Speech Pattern/Tone: Clear, Rambling Thought Process: Coherent Perception: WNL Thought Content: WNL Hallucination Type: None Delusion Type: None - Cognitive Function Orientation: A&O x 4 Level of Consciousness: Awake - Medication Compliance Cooperative with Inpatient Medication Regimen: Yes - Group Participation Participates in Group Activities: Partial Assessment - Assessment Merits Inpatient Hospitalization: For Immediate Safety Clinical Impression: 24 year old with history of Schizoaffective disorder, bipolar type, Borderline personality disorder, Cannabis use disorder, PTSD came to the hospital and was admitted to the BSU at [facility] for features of psychosis. Stabilizing in this structured setting. Plan - Plan Treatment Plan: Name: REAL GIRON Birthdate: 1995 [id number] #Q30 minute observation. # The patient requires psychiatric inpatient admission at this time to assure safety, receive treatment and work toward stabilization. # EKG ordered for risk of QT prolongation of antipsychotic medication. # Obtain collateral information once release is signed. # Collaboration with Floor Coverings Installer Caro Kay # [facility] records received and did not indicate prior psychiatric hospitalization # Zyprexa 15mg qhs # VA level 36 # Plan to receive Invega 234mg long acting injection on 04/27/19 Eligible to receive Invega 156mg on 05/01/19. Next due on 05/25/19. # Currently homeless- plan to refer to [facility] upon discharge #Follow up at [facility] # HIV pending # RPR and Hep C labs negative Tobacco use disorder: Nicotine supplement offered and put in place. #Goals before discharge include: Stabilization of psychotic features. Tentative Discharge: Friday or Friday. Continued Medication Management: Continue Outpt Medication Medications: Current Medications Acetaminophen (Tylenol Tab*) 650 mg PO Q4H PRN PRN Reason: PAIN or TEMP > 101 F Al Hydrox/Mg Hydrox/Simethicone (Maalox Plus*) 30 ml PO Q4H PRN PRN Reason: INDIGESTION Divalproex Sodium (Depakote Dr Tab(*)) 1,000 mg PO BID [facility] Last Admin: 04/27/19 09:58 Dose: 1,000 mg Haloperidol (Haldol Tab*) 5 mg PO Q6H PRN PRN Reason: AGITATION Last Admin: 04/26/19 16:50 Dose: 5 mg Ibuprofen (Motrin Tab*) 400 mg PO Q6H PRN PRN Reason: PAIN - MODERATE Last Admin: 04/25/19 18:55 Dose: 400 mg Lorazepam (Ativan Tab(*)) 2 mg PO Q6H PRN PRN Reason: ANXIETY Last Admin: 04/26/19 21:42 Dose: 2 mg Multivitamins (Theragran Tab*) 1 tab PO DAILY [facility] Last Admin: 04/27/19 09:58 Dose: 1 tab Nicotine Polacrilex (Nicotine Gum*) 2 mg PO Q2H PRN PRN Reason: CRAVINGS Olanzapine (Zyprexa Tab*) 15 mg PO BEDTIME [facility] Last Admin: 04/26/19 20:32 Dose: 15 mg Paliperidone Palmitate (Invega Sustenna*) 234 mg IM ONCE ONE Stop: 04/27/19 15:01 Trazodone HCl (Desyrel Tab*) 100 mg PO BEDTIME [facility] Last Admin: 04/26/19 20:33 Dose: 100 mg - Discharge Plan Discharge Plan: Inpatient Hospitalization
[2019-04-27] MEDS ORDERED: Paliperidone SUSTENNA* 234 MG/1.5 ML IM ONE (15:00)
[2019-04-27] MEDS: Haloperidol TAB* 5 MG PO PRN (16:43)
[2019-04-27] MEDS: LORazepam TAB(*) 1 MG PO PRN (16:43)
[2019-04-27] MEDS: Ibuprofen TAB* 400 MG PO PRN (16:43)
[2019-04-27] MEDS: OLANzapine TAB* 5 MG PO SCH (20:19)
[2019-04-27] MEDS: traZODone TAB* 100 MG PO SCH (20:19)
[2019-04-28] MEDS: Divalproex DR TAB(*) 500 MG PO SCH ×2 (10:38→20:38)
[2019-04-28] MEDS: Vitamin THERAPEUTIC TAB PO SCH (10:39)
--- NOTE | 2019-04-28 10:55 | PN ---
Subjective - Subjective Date of Service: 04/28/19 Service Type: [id number] Hosp care 35 min high complexity Subjective: Nursing Report: Patient was visible on unit, no behavioral incidents. Slept overnight. CC: "Fine" Patient was seen and evaluated in the common room. The patient reported he will attend his follow up appointment following discharge tomorrow. He denied hearing voices and is concerned about transferring his social security from [place] to [place]. He reported having adequate appetite and sleep. Per nursing no behavioral issues or overnight events reported. Patient reported that he is tolerating medications without side effects. Objective - General Observations Appearance: Neat Appears Stated Age: Yes Stature: WNL Posture: WNL Eye Contact: Average Behavior/Activity: WNL - Interaction Observations Attitude Towards Examiner: Cooperative Stated Mood: Expansive Affect: Blunted Speech Pattern/Tone: Clear Thought Process: Coherent Perception: WNL Thought Content: WNL Hallucination Type: None Delusion Type: None - Cognitive Function Orientation: A&O x 4 Level of Consciousness: Awake - Medication Compliance Cooperative with Inpatient Medication Regimen: Yes - Group Participation Participates in Group Activities: No Assessment - Assessment Merits Inpatient Hospitalization: For Immediate Safety Clinical Impression: 24 year old with history of Schizoaffective disorder, bipolar type, Borderline personality disorder, Cannabis use disorder, PTSD came to the hospital and was admitted to the BSU at [facility] for features of psychosis. Stabilizing in this structured setting. Plan - Plan Treatment Plan: Name: REAL GIRON Birthdate: 1995 [id number] #Q30 minute observation. # The patient requires psychiatric inpatient admission at this time to assure safety, receive treatment and work toward stabilization. # EKG ordered for risk of QT prolongation of antipsychotic medication. # Collaboration with Branch Specialist Caro Kay # [facility] records received and did not indicate prior psychiatric hospitalization # Decrease Zyprexa to 5mg at bedtime and then d/c tomorrow. # VA level 36 # Received Invega 234mg long acting injection on 04/27/19 without complications Eligible to receive Invega 156mg on 05/01/19. And then next due on 05/25/19. # Currently homeless- plan to refer to [facility] upon discharge #Follow up at [facility] # HIV negative # RPR and Hep C labs negative # Following discharge he will be provided a ride to his follow up appointment Tobacco use disorder: Nicotine supplement offered and put in place. #Goals before discharge include: Stabilization of psychotic features. Tentative Discharge: Sodium 137 mmol/L (135-145) 04/20/19 01:27 Potassium 4.1 mmol/L (3.5-5.0) 04/20/19 01:27 BUN 18 mg/dL (6-24) 04/20/19 01:27 Creatinine 1.00 mg/dL (0.67-1.17) 04/20/19 01:27 Hemoglobin A1c 5.5 % (4.0-5.6) 04/23/19 13:30 Calcium 9.6 mg/dL (8.6-10.3) 04/20/19 01:27 Magnesium 2.3 mg/dL (1.9-2.7) 04/20/19 01:27 AST 23 U/L (13-39) 04/20/19 01:27 ALT 23 U/L (7-52) 04/20/19 01:27 Triglycerides 237 mg/dL 04/23/19 13:30 Cholesterol 124 mg/dL 04/23/19 13:30 LDL Cholesterol 48 mg/dL 04/23/19 13:30 Vital Signs Temp Pulse Resp BP Pulse Ox 98.2 F 80 16 119/54 98 04/28/19 08:00 04/28/19 08:00 04/28/19 08:00 04/28/19 08:00 04/28/19 08:00 Continued Medication Management: Continue Outpt Medication Medications: Current Medications Acetaminophen (Tylenol Tab*) 650 mg PO Q4H PRN PRN Reason: PAIN or TEMP > 101 F Al Hydrox/Mg Hydrox/Simethicone (Maalox Plus*) 30 ml PO Q4H PRN PRN Reason: INDIGESTION Divalproex Sodium (Depakote Dr Tab(*)) 1,000 mg PO BID [facility] Last Admin: 04/28/19 10:38 Dose: 1,000 mg Haloperidol (Haldol Tab*) 5 mg PO Q6H PRN PRN Reason: AGITATION Last Admin: 04/27/19 16:43 Dose: 5 mg Ibuprofen (Motrin Tab*) 400 mg PO Q6H PRN PRN Reason: PAIN - MODERATE Last Admin: 04/27/19 16:43 Dose: 400 mg Lorazepam (Ativan Tab(*)) 2 mg PO Q6H PRN PRN Reason: ANXIETY Last Admin: 04/27/19 16:43 Dose: 2 mg Multivitamins (Theragran Tab*) 1 tab PO DAILY [facility] Last Admin: 04/28/19 10:39 Dose: 1 tab Nicotine Polacrilex (Nicotine Gum*) 2 mg PO Q2H PRN PRN Reason: CRAVINGS Olanzapine (Zyprexa Tab*) 15 mg PO BEDTIME [facility] Last Admin: 04/27/19 20:19 Dose: 15 mg Trazodone HCl (Desyrel Tab*) 100 mg PO BEDTIME [facility] Last Admin: 04/27/19 20:19 Dose: 100 mg - Discharge Plan Discharge Plan: Inpatient Hospitalization
[2019-04-28 13:48] LABS: HIV-1 RNA (PCR) Undetected copies/mL (Undetected)
[2019-04-28] MEDS: Haloperidol TAB* 5 MG PO PRN ×2 (14:03→21:16)
[2019-04-28] MEDS: LORazepam TAB(*) 1 MG PO PRN (14:03)
[2019-04-28] MEDS: traZODone TAB* 100 MG PO SCH (20:39)
[2019-04-28] MEDS ORDERED: OLANzapine TAB* 5 MG PO SCH (21:00)
[2019-04-29] MEDS: Haloperidol TAB* 5 MG PO PRN (03:56)
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
[2019-04-29 08:49] VITALS: BP 112/66
[2019-04-29] MEDS: Divalproex DR TAB(*) 500 MG PO SCH (09:27)
[2019-04-29] MEDS: Vitamin THERAPEUTIC TAB PO SCH (09:27)
== END 2019-04-29 10:00 | disposition home or self-care (01) | DRG 750 ==
LOC: ED 00:43 → BSU 06:23
PROVIDERS: ADMIT Psychiatry & Neurology Psychiatry; ATTEND Psychiatry & Neurology Psychiatry
DX: F25.0 Schizoaffective disorder, bipolar type (principal); F60.3 Borderline personality disorder; F12.90 Cannabis use, unspecified, uncomplicated; F41.9 Anxiety disorder, unspecified; F90.9 Attention-deficit hyperactivity disorder, unspecified type; F17.210 Nicotine dependence, cigarettes, uncomplicated; Z62.810 Personal history of physical and sexual abuse in childhood; F43.10 Post-traumatic stress disorder, unspecified; Z91.5 Personal history of self-harm; Z81.8 Family history of other mental and behavioral disorders; Z81.1 Family history of alcohol abuse and dependence; Z59.0 Homelessness; Z56.0 Unemployment, unspecified; Z72.89 Other problems related to lifestyle
CPT/HCPCS: 36415; 80048; 80061; 80076; 80164; 80307; 80320; 83036; 83690; 83735; 85025; 85610; 85730; 86701; 86702; 86780; 86803; 87536; 93005; 99222; 99231; 99233; 99238; 99285; A9270-GY; G0480; J2426